=== PATIENT | female | born 1965 | race Two or more races ===

== ENCOUNTER 2025-06-17 15:02 | Outpatient (CLI) | payer OTHER | END 2025-06-17 15:07 | disposition home or self-care (01) | LOC: RAD 15:02 | PROVIDERS: ATTEND Surgery Surgery of the Hand | DX: M54.12 Radiculopathy, cervical region (principal); M19.031 Primary osteoarthritis, right wrist; M19.041 Primary osteoarthritis, right hand; M19.032 Primary osteoarthritis, left wrist; M19.042 Primary osteoarthritis, left hand; G56.03 Carpal tunnel syndrome, bilateral upper limbs ==